=== PATIENT | male | born 1970 | race Caucasian/White ===

== ENCOUNTER 2018-01-21 15:47 | Outpatient (CLI) | payer MEDICARE, OTHER ==
[2016-09-13 19:39] VITALS: BP 169/90
[2018-01-21 16:27] LABS: BASOPHILS % 0.6 (0.0-1.5); EOSINOPHILS % 1.1 % (0.0-6.8); MEAN CORPUSCULAR HEMOGLOBIN 30.2 pg (28.0-34.0); MEAN CORPUSCULAR VOLUME 86.7 fl (80.0-100.0); MONOCYTES % 5.1 % (0.0-11.0)
[2018-01-21 17:02] LABS: eGFR (African) > 60; eGFR (Non-African) > 60
== END 2018-01-21 15:50 ==
LOC: LAB 15:47
PROVIDERS: ATTEND Family Medicine
DX: K62.5 Hemorrhage of anus and rectum (principal); I10 Essential (primary) hypertension; I50.9 Heart failure, unspecified; E78.5 Hyperlipidemia, unspecified; R73.9 Hyperglycemia, unspecified; R30.0 Dysuria
CPT/HCPCS: 36415; 80053; 80061; 83036; 85025; G0103; 84153; 87086

== ENCOUNTER 2018-01-25 06:30 | Emergency (ER) | payer MEDICARE, OTHER ==
--- NOTE | 2018-01-25 06:59 | ED Physician Documentation ---
Chest Pain - HISTORIAN Historian: patient, spouse - HPI Chief Complaint: Chest Pain - VITAL SIGNS Vital Signs: Vital Signs Temp Pulse Resp BP Pulse Ox 169/90 09/13/16 19:36 <Ranjeet Zelaya - Last Filed: 01/25/18 07:00> - HPI Onset: other (Since 10 pm last night although this has happened in the past ) Timing: gradual onset, still present Duration: waxing, waning (since 10 pm ) Last known Well Date: 01/24/18 Last Known Well Time: 22:00 Last known Well Code/Unknown Code: Unknown Context: other (He said he was up with the pain initally started however he was able to sleep ) Severity: mild Quality: pressure, burning, dull Chest Pain Radiation: jaw, arms, neck, shoulders, back Chest Pain Signs/Symptoms: denies: nausea, vomiting, diaphoresis, dizziness, dyspnea Worsened By: nothing Relieved By: nothing Further Comments: yes (He states that he started with pain around 10 pm - epigastric in his indication of where pain started. He states he did fall asleep and then was up to have a bowel movement and notes he did get the pain in his arm and jaw at that time. No nausea . No diaprohesis) - ROS CONST: none MS/LYMPH: none GI/: none EYES/ENT: none SKIN/ENDO: none NEURO/PSYCH: none - PAST HX ID risk factors: diabetes Type 2, hyperlipidemia, cardiac disease, angina, CHF DVT/PE Risk Factors: none TAD/AAA risk factors: none Neuro deficit: TIA (history - no current symptoms ) GI disease: none Lung disease: none Surgeries/Procedures: cardiac cath, appendectomy Immunizations: UTD - SOCIAL HX Smoking History: quit greater than 1 year Alcohol Use: none Drug Use: none - FAMILY HX Family HX: none - VITAL SIGNS Vital Signs: Vital Signs Temp Pulse Resp BP Pulse Ox 117 H 22 176/96 99 01/25/18 06:39 01/25/18 06:39 01/25/18 06:39 01/25/18 06:39 - REVIEWED ASSESSMENTS Nursing Assessment Reviewed: Yes Vitals Reviewed: Yes <Noemi Gomez - Last Filed: 01/25/18 07:31> - PAST HX Allergies/Adverse Reactions: Allergies Allergy/AdvReac Type Severity Reaction Status Date / Time cephalexin [Cephalexin] Allergy Mild Verified 01/25/18 06:46 Sulfa (Sulfonamide Allergy Verified 01/25/18 06:46 Antibiotics) [Sulfa(Sulfonamide Antibiotics)] aspirin AdvReac Severe agitation Verified 01/25/18 06:46 hydromorphone HCl AdvReac Nausea/Vomi Verified 01/25/18 06:46 [From Dilaudid] ting Home Medications: Ambulatory Orders Medication Instructions Recorded Nitroglycerin [Nitrostat] 0.4 mg SL Q5MIN PRN 09/15/15 Tamsulosin HCl [Flomax] 0.4 mg PO [id number] 11/25/15 oxyCODONE HCL/ACETAMINOPHEN 1 tab PO Q6 PRN 11/25/15 [Percocet 5/325] Potassium Chloride [Klor-Con 10] 10 meq PO D #30 tablet.er 12/08/15 Procedures - Central Line Progress: transfer to [place] [id number] <Ranjeet Zelaya R - Last Filed: 01/25/18 07:00> ED Results Lab/Radiology - Orders Orders: ED Orders Category Date Time Status Continuous EKG monitoring Q30M Care 01/25/18 06:46 Active Continuous Pulse Oximetry Q30M Care 01/25/18 06:[address] IV Lock 1T Care 01/25/18 06:46 Active CHEST 2VIEW [RAD] Stat Exams 01/25/18 Ordered CBC/PLATELET/DIFF Routine Lab 01/25/18 06:46 Ordered CMP Routine Lab 01/25/18 06:46 Ordered CREATINE KINASE Routine Lab 01/25/18 06:46 Ordered TROPONIN I (cTnI) Stat Lab 01/25/18 06:46 Ordered Oxygen Daily Oxygen 01/25/18 07:00 Ordered EKG WITH COMPARISON Stat Ther 01/25/18 06:46 Ordered <Ranjeet Zelaya - Last Filed: 01/25/18 07:00> - Lab Results Lab Results: Lab Results 01/25/18 01/25/18 06:57 06:57 WBC 8.30 K/ul K/ul (4.00-12.00) RBC 4.66 M/ul M/ul (3.90-5.20) Hgb 14.6 g/dL g/dL (12.0-18.0) Hct 41.2 % % (37.0-53.0) MCV 88.5 fl fl (80.0-100.0) MCH 31.3 pg pg (28.0-34.0) MCHC 35.4 g/dL g/dL (30.0-36.0) RDW 13.0 % % (11.3-14.3) Plt Count 313 K/mm3 K/mm3 (130-400) Neut % (Auto) 64.3 % % (39.0-79.0) Lymph % (Auto) 26.6 % % (16.0-50.0) [place] % (Auto) 5.5 % % (0.0-11.0) Eos % (Auto) 1.3 % % (0.0-6.8) Baso % (Auto) 0.7 (0.0-1.5) Neut # (Auto) 5.3 # k/uL # k/uL (1.4-7.7) Lymph # (Auto) 2.2 # k/uL # k/uL (0.6-4.0) [place] # (Auto) 0.4 # k/uL # k/uL (0.0-0.9) Eos # (Auto) 0.1 # k/uL # k/uL (0.0-0.6) Baso # (Auto) 0.0 # k/uL # k/uL (0.0-0.5) Reactive Lymphs % 1.7 % % (0.0-5.0) Reactive Lymphs # 0.1 # k/uL # k/uL (0.0-0.8) Sodium 138 mmol/L mmol/L (136-145) Potassium 3.4 mmol/L L mmol/L (3.5-5.1) Chloride 97 mmol/L L mmol/L (98-107) Carbon Dioxide 28 mmol/L mmol/L (22-30) BUN 7 mg/dL L mg/dL (9-20) Creatinine 0.90 mg/dL mg/dL (0.66-1.25) Estimated Creat Clear 209 Est GFR ( Amer) > 60 (60 - ) Est GFR (Non-Af Amer) > 60 (60 - ) Glucose 160 mg/dL H mg/dL (74-106) Calcium 9.5 mg/dL mg/dL (8.4-10.2) Total Bilirubin 0.8 mg/dL mg/dL (0.2-1.3) AST 45 U/L U/L (15-46) ALT 63 U/L U/L (13-69) Alkaline Phosphatase 94 U/L U/L (38-126) Creatine Kinase 101 U/L U/L (55-170) Total Protein 7.8 g/dL g/dL (6.3-8.2) Albumin 4.2 g/dL g/dL (3.5-5.0) - Orders Orders: ED Orders Category Date Time Status Continuous EKG monitoring Q30M Care 01/25/18 06:46 Active Continuous Pulse Oximetry Q30M Care 01/25/18 06:[address] IV Lock 1T Care 01/25/18 06:46 Active CHEST 2VIEW [RAD] Stat Exams 01/25/18 Taken CBC/PLATELET/DIFF Routine Lab 01/25/18 06:57 Completed CMP Routine Lab 01/25/18 06:57 Received CREATINE KINASE Routine Lab 01/25/18 06:57 Received TROPONIN I (cTnI) Stat Lab 01/25/18 06:57 Received Gi Cocktail Med 01/25/18 07:13 Ordered Mag Hydrox/Al Hydrox/Simeth [Mylanta] 30 ml Lidocaine 2%Visc 15ml [Xylocaine] 20 mg PHENobarb/HYOSCY/ATROPINE/SCOP [] 10 ml PO NOW Ketorolac Tromethamine [Toradol] Med 01/25/18 07:12 Once 30 mg IVP NOW ONE Lidocaine 2%Visc 15ml [Xylocaine] Med 01/25/18 07:19 Discontinued 300 mg .ROUTE .STK-MED ONE Magnesium Hydroxide/Al Hydrox [Maalox] Med 01/25/18 07:19 Discontinued 30 ml PO .STK-MED ONE Oxygen Daily Oxygen 01/25/18 07:00 Ordered EKG WITH COMPARISON Stat Ther 01/25/18 06:46 Ordered <Noemi Gomez - Last Filed: 01/25/18 07:31> Chest Pain Physical Exam - EXAM General Appearance: alert, mild distress EENT: eye inspection normal Neck: nml inspection Respiratory: no resp. distress, chest non-tender, nml breath sounds CVS: reg. rate & rhythm, no murmur, no gallop, no friction rub Abdomen: soft, normal bowel sounds, other (pain with palpation epigastric area ) Skin: warm/dry, normal color Extremities: non-tender, normal range of motion, no evidence of injury, no edema Neuro: oriented X3, CN's nml as tested, motor nml, sensation nml, mood/affect nml, cognition normal <Noemi Gomez - Last Filed: 01/25/18 07:31> Discharge <Ranjeet Zelaya - Last Filed: 01/25/18 07:00> Comments: 1. Follow up with [facility] /PCP 2. Pain meds as needed at home 3. [place] foods progress as tolerated 4. Sit up after eating meals for at least 30 min 5. Return to ER for any concerns Decision to Admit: NO Date of Decison to Admit: 01/25/18 Decision Time: 07:31 <Noemi Gomez - Last Filed: 01/25/18 07:31> Clincal Impression: Chest pain Qualifiers: Chest pain type: unspecified Qualified Code(s): R07.9 - Chest pain, unspecified Referrals: Phan Dickerson MD [Primary Care Provider] - 2 Days Condition: Stable Disposition: 01 HOME, SELF-CARE
[2018-01-25 07:10] LABS: BASOPHILS % 0.7 (0.0-1.5); EOSINOPHILS % 1.3 % (0.0-6.8); MEAN CORPUSCULAR HEMOGLOBIN 31.3 pg (28.0-34.0); MEAN CORPUSCULAR VOLUME 88.5 fl (80.0-100.0); MONOCYTES % 5.5 % (0.0-11.0); NEUTROPHILS # 5.3 # k/uL (1.4-7.7)
[2018-01-25] MEDS ORDERED: KETOROLAC TROMETHAMINE 30 MG/1ML VIAL IVP ONE (07:12)
[2018-01-25] MEDS ORDERED: MAG HYDROX/AL HYDROX/SIMETH 30 ML, Lidocaine 2%Visc 15ml 20 MG, PHENobarb/HYOSCY/ATROPI... PO ONE ×3 (07:13)
--- NOTE | 2018-01-25 07:16 | Diagnostic Imaging Report ---
[facility] [address] [facility] 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 COMPARISON: None available. TECHNIQUE: 2 views of the chest were performed. FINDINGS: No pneumothorax, consolidative infiltrates, pleural effusions, or pulmonary edema. The heart is borderline enlarged. Abundant overlying soft tissue obscures evaluation of fine detail. IMPRESSION: No acute cardiopulmonary process. Electronically signed on Jan 25, 2018 7:14:19 AM BIOSTATISTICS TEACHER by: Jamil ANDERSEN
[2018-01-25 07:19] LABS: eGFR (African) > 60; eGFR (Non-African) > 60
[2018-01-25] MEDS ORDERED: Lidocaine 2%Visc 15ml 20 MG/ML UDC ONE (07:19)
[2018-01-25] MEDS ORDERED: MAGNESIUM HYDROXIDE/AL HYDROX 30 ML UDC PO ONE (07:19)
[2018-01-25 07:44] VITALS: BP 151/98
== END 2018-01-25 07:30 | disposition home or self-care (01) ==
LOC: ED 06:30
DX: R07.9 Chest pain, unspecified (principal); I50.9 Heart failure, unspecified; E11.9 Type 2 diabetes mellitus without complications; I10 Essential (primary) hypertension
CPT/HCPCS: 71046; 80053; 82550; 84484; 85025; 93005; J1885; 96374; 99283; S1016

== ENCOUNTER 2018-02-03 21:28 | Emergency (ER) | payer MEDICARE, OTHER ==
[2018-02-03] MEDS: 0.9 % SODIUM CHLORIDE 1,000 ML IV SCH (22:15)
--- NOTE | 2018-02-03 22:15 | ED Physician Documentation ---
Abdominal Pain - HISTORIAN Historian: patient, spouse - HPI Stated Complaint: UNABLE TO VOID Chief Complaint: Abdominal Pain Additonal Information: rt and lt flank pain rad to rt groin and dtesticles emesis water this pm freq scanty ua w/discomfort feeling inadequate empty of ub-pt refuses catheter has hx gu lith Onset: days ago (1) Duration: waxing, waning Timing: worse Context: denies: out of country travel, bad food, recent trauma Severity: moderate Quality: pain, cramping, other (pt paces floor) Associated Symptoms: nausea, vomiting Relieved by: nothing Further Comments: yes (pt [facility] recently deep TIA) - ROS CONST: recent illness GI/: dark urine, problems urinating CVS/RESP: none EYES/ENT: none MS/SKIN/LYMPH: none NEURO/PSYCH: none - SOCIAL HX Smoking History: non-smoker Alcohol Use: none Drug Use: none - FAMILY HX Family History: no significant history - PAST HX Past History: kidney stones, other (TIA CHF POSS HI) Ischemic Bowel Risk Factors: none Other History: none Home Medications: Ambulatory Orders Medication Instructions Recorded Nitroglycerin [Nitrostat] 0.4 mg SL Q5MIN PRN 09/15/15 Tamsulosin HCl [Flomax] 0.4 mg PO [id number] 11/25/15 oxyCODONE HCL/ACETAMINOPHEN 1 tab PO Q6 PRN 11/25/15 [Percocet 5/325] Potassium Chloride [Klor-Con 10] 10 meq PO D #30 tablet.er 12/08/15 Allergies/Adverse Reactions: Allergies Allergy/AdvReac Type Severity Reaction Status Date / Time cephalexin [Cephalexin] Allergy Mild Verified 02/03/18 22:25 Sulfa (Sulfonamide Allergy Verified 02/03/18 22:25 Antibiotics) [Sulfa(Sulfonamide Antibiotics)] aspirin AdvReac Severe agitation Verified 02/03/18 22:25 hydromorphone HCl AdvReac Nausea/Vomi Verified 02/03/18 22:25 [From Dilaudid] ting - VITAL SIGNS Vital Signs: Vital Signs Temp Pulse Resp BP Pulse Ox 97.6 F 106 H 20 144/101 97 02/03/18 21:28 02/03/18 21:28 02/03/18 21:28 02/03/18 21:28 02/03/18 21:28 - REVIEWED ASSESSMENTS Nursing Assessment Reviewed: Yes Vitals Reviewed: Yes ED Results Lab/Radiology - Lab Results Lab Results: Lab Results 02/03/18 02/03/18 02/03/18 22:16 22:16 22:16 WBC 8.70 K/ul K/ul (4.00-12.00) RBC 4.87 M/ul M/ul (3.90-5.20) Hgb 14.8 g/dL g/dL (12.0-18.0) Hct 42.3 % % (37.0-53.0) MCV 86.9 fl fl (80.0-100.0) MCH 30.3 pg pg (28.0-34.0) MCHC 34.9 g/dL g/dL (30.0-36.0) RDW 13.0 % % (11.3-14.3) Plt Count 343 K/mm3 K/mm3 (130-400) Neut % (Auto) 61.1 % % (39.0-79.0) Lymph % (Auto) 28.7 % % (16.0-50.0) [place] % (Auto) 6.1 % % (0.0-11.0) Eos % (Auto) 2.1 % % (0.0-6.8) Baso % (Auto) 0.7 (0.0-1.5) Neut # (Auto) 5.3 # k/uL # k/uL (1.4-7.7) Lymph # (Auto) 2.5 # k/uL # k/uL (0.6-4.0) [place] # (Auto) 0.5 # k/uL # k/uL (0.0-0.9) Eos # (Auto) 0.2 # k/uL # k/uL (0.0-0.6) Baso # (Auto) 0.1 # k/uL # k/uL (0.0-0.5) Reactive Lymphs % 1.4 % % (0.0-5.0) Reactive Lymphs # 0.1 # k/uL # k/uL (0.0-0.8) Sodium 139 mmol/L mmol/L (136-145) Potassium 3.6 mmol/L mmol/L (3.5-5.1) Chloride 100 mmol/L mmol/L (98-107) Carbon Dioxide 24 mmol/L mmol/L (22-30) BUN 10 mg/dL mg/dL (9-20) Creatinine 0.90 mg/dL mg/dL (0.66-1.25) Estimated Creat Clear 203 Est GFR ( Amer) > 60 (60 - ) Est GFR (Non-Af Amer) > 60 (60 - ) Glucose 171 mg/dL H mg/dL (74-106) Calcium 9.0 mg/dL mg/dL (8.4-10.2) Total Bilirubin 0.9 mg/dL mg/dL (0.2-1.3) AST 48 U/L H U/L (15-46) ALT 71 U/L H U/L (13-69) Alkaline Phosphatase 108 U/L U/L (38-126) Total Protein 8.0 g/dL g/dL (6.3-8.2) Albumin 4.3 g/dL g/dL (3.5-5.0) Lipase 181 U/L U/L (23-300) - Radiology Radiology Impressions: rt and lt kidney stoness-2mm stone in rt ureter at L-4 causing hydroureter. meds we have given providing inaDEQUATE RELIEF THOUGH BETTER. He states demerol will produce relief but we do not stock that med here. he has received it w/relief at [facility] He is sent home w/ three norco and has standing rx for oxycodone AND WILL F/U W/THAT. if no relief will perhaps go [facility] for furthur evbaluation. It is explained in detail that his severe dehydration and extensive use soda and admitted inadequate water intake apparently exaBERATE his chances of repeated kidney stones. he says he will dec use soda and increase use of water and will f/u w/ his urologists' - Orders Orders: ED Orders Category Date Time Status Place IV Lock 1T Care 02/03/18 22:[address] ABD & PELVIS W/O CON Stat Exams 02/03/18 Taken CBC/PLATELET/DIFF Routine Lab 02/03/18 22:16 Completed CMP Routine Lab 02/03/18 22:16 Completed LIPASE Stat Lab 02/03/18 22:16 Completed URINALYSIS Routine Lab 02/03/18 Ordered 0.9 % Sodium Chloride [Normal Saline] 1,000 ml Med 02/03/18 22:30 Ordered IV Q1 HYDROcodone /APAP 5/325 [Exira 5/325] Med 02/04/18 00:37 Discontinued 3 each PO NOW ONE Ketorolac Tromethamine [Toradol] Med 02/03/18 22:55 Discontinued 30 mg .ROUTE .STK-MED ONE Ketorolac Tromethamine [Toradol] Med 02/03/18 22:56 Discontinued 30 mg IVP NOW ONE Morphine Sulfate [DepoDur] Med 02/03/18 23:56 Discontinued 2 mg IVP NOW ONE Ondansetron HCl/Pf [Zofran 4 mg/2 ml] Med 02/03/18 22:04 Discontinued 4 mg IVP NOW ONE Ondansetron HCl/Pf [Zofran 4 mg/2 ml] Med 02/04/18 00:00 Discontinued 4 mg IVP NOW ONE Tamsulosin HCl [Flomax] Med 02/03/18 23:25 Discontinued 0.4 mg PO NOW ONE fentaNYL CITRATE/PF [Duragesic] Med 02/03/18 23:24 Discontinued 100 mcg IVP NOW ONE fentaNYL CITRATE/PF [Duragesic] Med 02/03/18 22:07 Discontinued 50 mcg IVP NOW ONE Abdominal Pain Physical Exam - Physical Exam General Appearance: moderate distress (paces floor) EENT: eye inspection normal NECK: normal inspection RESPIRATORY: no resp distress, breath sounds normal CVS: reg rate & rhythm ABDOMEN: soft, distended (-marked). No: non-tender, tenderness (generalized) SKIN: warm/dry, normal color. No: cyanosis, diaphoresis, mottled EXTREMITIES: non-tender, normal range of motion, no evidence of injury NEURO: oriented X3, mood/affect nml Vital Signs: Vital Signs Temp Pulse Resp BP Pulse Ox 97.6 F 106 H 20 144/101 97 02/03/18 21:28 02/03/18 21:28 02/03/18 21:28 02/03/18 21:28 02/03/18 21:28 Discharge Clincal Impression: gu llithiasis w/ rt hydroureter , 2mm stone rt ureter, advanced dehydration, excess soda lpop-up to 36 0z/d Referrals: Phan Dickerson MD [Primary Care Provider] - 2 Days Comments: home f/u w/pcp urologists. (see note w/radiology report) Condition: Fair Disposition: 01 HOME, SELF-CARE Decision to Admit: NO Decision Time: 00:52
[2018-02-03] MEDS ORDERED: 0.9 % SODIUM CHLORIDE 1,000 ML IV ONE (22:17)
[2018-02-03 22:20] LABS: BASOPHILS % 0.7 (0.0-1.5); EOSINOPHILS % 2.1 % (0.0-6.8); MEAN CORPUSCULAR HEMOGLOBIN 30.3 pg (28.0-34.0); MEAN CORPUSCULAR VOLUME 86.9 fl (80.0-100.0); MONOCYTES % 6.1 % (0.0-11.0); NEUTROPHILS # 5.3 # k/uL (1.4-7.7)
[2018-02-03] MEDS: ONDANSETRON HCL/PF 4 MG/ 2ML VIAL IVP ONE (22:23)
[2018-02-03] MEDS: fentaNYL CITRATE/PF 100 MCG/ 2ML AMP IVP ONE ×2 (22:23→23:34)
[2018-02-03 22:39] LABS: eGFR (African) > 60; eGFR (Non-African) > 60
[2018-02-03] MEDS: KETOROLAC TROMETHAMINE 30 MG/1ML VIAL ONE (22:58)
[2018-02-03] MEDS: KETOROLAC TROMETHAMINE 30 MG/1ML VIAL IVP ONE (22:58)
[2018-02-03] MEDS: TAMSULOSIN HCL 0.4 MG CAP.ER.24H PO ONE (23:45)
[2018-02-04] MEDS: MORPHINE SULFATE 2 MG/ML PREFILLED SYR IVP ONE (00:07)
[2018-02-04] MEDS: ONDANSETRON HCL/PF 4 MG/ 2ML VIAL IVP ONE (00:07)
[2018-02-04] MEDS: HYDROcodone /APAP 5/325 1 EACH TABLET PO ONE (00:45)
--- NOTE | 2018-02-04 06:45 | Diagnostic Imaging Report ---
KAY MURRAY [facility] [address] [facility] [address] [place] [address]. [id number] Report Submission Date: Feb 03, 2018 10:55:47 PM CDT Patient Study Name: PHYLLIS CAIN Date: Feb 03, 2018 10:29:13 PM CDT MRN: [id number] Modality Type: CT\SR Gender: M Description: CT ABD/PEL S : 72 Institution: [facility] Physician: KAY MURRAY CT of the abdomen and pelvis without contrast Clinical history: RIGHT SIDED ABD FLANK PAIN, HX OF KIDNEY STONES Technique: CT of the abdomen and pelvis was performed without oral or intravenous administration of contrast. Sagittal and coronal reconstructions are performed by the technologist. Findings: Visualized lung bases are clear. Bilateral gynecomastia is evident. The liver is diffusely hypodense consistent with hepatic steatosis. No focal abnormality in the liver or spleen. Gallbladder is normally distended. There is no pancreatic or adrenal abnormality. The kidneys are of normal size, shape and position. There bilateral intrarenal calculi. There is a 2 mm stone in the right ureter at the L4 level with right obstructive uropathy. Bladder is unremarkable. No free fluid in the pelvis or abdomen. Appendix is surgically absent. Right inguinal hernia is present containing only fat. Bilateral spondylolysis is demonstrated at L5 with grade I anterolisthesis of L5 on S1. Impression: 1. 2 mm stone in the right ureter with right obstructive uropathy. 2. Bilateral intrarenal calculi. 3. Hepatic steatosis. 4. Bilateral spondylolysis at L5. Electronically signed on Feb 03, 2018 10:55:47 PM CDT by: Yrn ANDERSEN
[2018-02-04 07:01] LABS: APPEARANCE,URINE CLEAR (CLEAR); COLOR,URINE YELLOW (YELLOW)
[2018-02-04 07:02] LABS: OCCULT BLOOD,URINE 3+ (NEGATIVE); PH URINE 5.5 (5.0 - 8.0); UROBILINOGEN URINE 0.2 Eu (0.2-1.0)
[2018-02-11 19:26] VITALS: BP 138/70
== END 2018-02-04 00:50 | disposition home or self-care (01) ==
LOC: ED 21:28
DX: E86.0 Dehydration (principal); N13.2 Hydronephrosis with renal and ureteral calculous obstruction
CPT/HCPCS: 74176; 80053; 81002; 83690; 85025; 96360; 96375; 96376; 99283; J1885; J2405; J3010; J7030; 96374; S1016

== ENCOUNTER 2018-07-20 18:04 | Emergency (ER) | payer MEDICARE, OTHER ==
--- NOTE | 2018-07-20 18:22 | ED Physician Documentation ---
General Adult - HISTORIAN Historian: patient - HPI Stated Complaint: R hand pain Chief Complaint: General Adult Onset: other (months) Timing: still present Severity: moderate Further Comments: yes (Pt is a 47 yo male with pain in his R hand. Pain c/o several cysts on wrist, and palm. Pt describes trigger finger in his R middle finger. Finger gets stuck in flexion. Pt has pain that radiates up his R arm, he says.) - ROS CONST: no problems EYES/ENT: none CVS/RESP: none GI/: none MS/SKIN/LYMPH: other (R hand pain) - PAST HX Past History: other (CAD, CHF, [place], CVA, DM, GERD, HLD, HTN) Surgeries/Procedures: other (appendectomy; heart cath x 3.) Allergies/Adverse Reactions: Allergies Allergy/AdvReac Type Severity Reaction Status Date / Time cephalexin [Cephalexin] Allergy Mild Verified 07/20/18 18:47 Sulfa (Sulfonamide Allergy Verified 07/20/18 18:47 Antibiotics) [Sulfa(Sulfonamide Antibiotics)] aspirin AdvReac Severe agitation Verified 07/20/18 18:47 hydromorphone HCl AdvReac Nausea/Vomi Verified 07/20/18 18:47 [From Dilaudid] ting Home Medications: Ambulatory Orders Medication Instructions Recorded Nitroglycerin [Nitrostat] 0.4 mg SL Q5MIN PRN 09/15/15 Tamsulosin HCl [Flomax] 0.4 mg PO [id number] 11/25/15 oxyCODONE HCL/ACETAMINOPHEN 1 tab PO Q6 PRN 11/25/15 [Percocet 5/325] Potassium Chloride [Klor-Con 10] 10 meq PO D #30 tablet.er 12/08/15 - SOCIAL HX Smoking History: quit greater than 1 year - FAMILY HX Family History: No (unk) - VITAL SIGNS Vital Signs: Vital Signs Temp Pulse Resp BP Pulse Ox 138/70 02/04/18 00:48 - REVIEWED ASSESSMENTS Nursing Assessment Reviewed: Yes Vitals Reviewed: Yes Progress - Progress Progress: Splint R wrist and R ring finger [place] (5/325) 2 tabs in ER. D/c instructions: Follow up with Orthopedic Clinic at either [facility] Tel. [phone] (ask for Orthopedic Clinic) or at [facility] Tel. [phone]. Splint finger and wrist. Rx [place] (). Take one or two every 6 hrs as needed for moderate to severe pain. Disp #15 General Adult Physical Exam - PHYSICAL EXAM GENERAL APPEARANCE: mild distress NECK: normal inspection, supple RESPIRATORY: no resp distress, chest non-tender, breath sounds normal CVS: reg rate & rhythm, heart sounds normal BACK: normal inspection SKIN: warm/dry, normal color EXTREMITIES: other (R hand, mult cyst, wrist and palm with c/o R middle trigger finger.) NEURO: oriented X3, motor nml, sensation nml Discharge Clincal Impression: Mult R hand cysts, trigger finger, R ring finger Referrals: Phan Dickerson MD [Primary Care Provider] - Condition: Stable Disposition: 01 HOME, SELF-CARE Decision to Admit: NO Decision Time: 19:00
[2018-07-20] MEDS ORDERED: HYDROcodone /APAP 5/325 1 EACH TABLET PO ONE (18:47)
[2018-07-20 19:16] VITALS: BP 176/96
== END 2018-07-20 19:09 | disposition home or self-care (01) ==
LOC: ED 18:04
DX: M67.441 Ganglion, right hand (principal); M65.341 Trigger finger, right ring finger
CPT/HCPCS: 99282; A9270-GY

== ENCOUNTER 2018-08-12 10:25 | Outpatient (CLI) | payer MEDICARE, OTHER ==
[2018-08-12 11:51] LABS: eGFR (Non-African) > 60
== END 2018-08-12 10:26 ==
LOC: LAB 10:25
PROVIDERS: ATTEND Family Medicine
DX: E11.9 Type 2 diabetes mellitus without complications (principal); I42.9 Cardiomyopathy, unspecified
CPT/HCPCS: 80053; 80061; 82043; 83036

== ENCOUNTER 2018-09-07 14:33 | Emergency (ER) | payer MEDICARE, OTHER ==
--- NOTE | 2018-09-07 14:47 | ED Physician Documentation ---
Chest Pain - HISTORIAN Historian: patient - HPI Stated Complaint: chest pain Chief Complaint: Chest Pain Onset: days ago (3) Timing: other (on and off ) Duration: waxing, waning Last known Well Date: 09/04/18 Last Known Well Time: 10:00 Last known Well Code/Unknown Code: Unknown Context: other (he is not sure the correlation of timing ) Severity: mild Quality: pressure, tightness, burning, aching, sharp, stabbing Chest Pain Radiation: other (not radiation although at times sharp pain in left neck and back not always at the same time ) Chest Pain Signs/Symptoms: diaphoresis. 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 He does report having left sided arm numbness (he is able to use the walker with his left arm and he is holding himself up on the bed with his left arm) He reports the arm is "totally numb until that pain comes through my arm and it happens real fast I can feel it" He reports he was given hydrocodone for the stroke last week and he tried this last night for the pain although "it didnt touch it" He reports the pain is sharp at times, stabbing at times, aching at times, dull at times and pressure at times. The pain comes and goes but is always there per his report. He denies any nasuea although he has had some times where he feels as though he is sweating. Shortness of breath although he states he has oxygen at home he uses at times) - ROS CONST: other (stroke last week ) GI/: denies: problems urinating, vomiting, nausea, diarrhea EYES/ENT: denies: problems with vision NEURO/PSYCH: denies: headache - PAST HX [place] risk factors: diabetes Type 2, cardiac disease, CHF DVT/PE Risk Factors: paralysis (on left although he has been able to use the left side in ADL's ) Neuro deficit: none GI disease: GERD Lung disease: other (Sleep apnea ) Immunizations: UTD Allergies/Adverse Reactions: Allergies Allergy/AdvReac Type Severity Reaction Status Date / Time cephalexin [Cephalexin] Allergy Mild Verified 09/07/18 15:03 Sulfa (Sulfonamide Allergy Verified 09/07/18 15:03 Antibiotics) [Sulfa(Sulfonamide Antibiotics)] aspirin AdvReac Severe agitation Verified 09/07/18 15:03 hydromorphone HCl AdvReac Nausea/Vomi Verified 09/07/18 15:03 [From Dilaudid] ting Home Medications: Ambulatory Orders Medication Instructions Recorded Nitroglycerin [Nitrostat] 0.4 mg SL Q5MIN PRN 09/15/15 oxyCODONE HCL/ACETAMINOPHEN 1 tab PO Q6 PRN 11/25/15 [Percocet 5/325] Potassium Chloride [Klor-Con 10] 10 meq PO D #30 tablet.er 12/08/15 Albuterol Sulfate [Proair 90 mcg IH PRN 09/07/18 Respiclick] Carvedilol [Coreg] 25 mg PO BID 09/07/18 Clopidogrel Bisulfate [Plavix] 75 mg PO QD 09/07/18 Cyanocobalamin [Vitamin B-12] 1,000 mcg PO DAILY 09/07/18 Furosemide [Lasix] 40 mg PO DAILY 09/07/18 Losartan Potassium [Cozaar] 100 mg PO DAILY 09/07/18 Mupirocin 1 gm TP 09/07/18 Ondansetron HCl Rapdis [Zofran ODT] 4 mg PO PRN 09/07/18 Prochlorperazine Maleate 10 mg PO PRN 09/07/18 [Compazine] Spironolactone [Aldactone] 25 mg PO BID 09/07/18 Valproic Acid 250 mg PO DAILY 09/07/18 amLODIPine BESYLATE [Norvasc] 5 mg PO 0900 09/07/18 - SOCIAL HX Smoking History: non-smoker Alcohol Use: none Drug Use: none - FAMILY HX Family HX: none - VITAL SIGNS Vital Signs: Vital Signs Temp Pulse Resp BP Pulse Ox 176/96 07/20/18 19:09 - REVIEWED ASSESSMENTS Nursing Assessment Reviewed: Yes Vitals Reviewed: Yes Progress - Progress Progress: 1530: he is stating pain is increasing. LUQ over into chest DG 1600: Pain is "a little better" he is laying in bed with spouse at bedside DG 1730: Awaiting lab results - other findings discussed - he is not wanting to stay in the hospital DG 1805: States the pain is middle to left abdomen and up in left shoulder - pain is 7/10 DG 1830: Still awaiting lab. Pain is now a 3/10 DG 1955: results discussed and meds to take prior to home. He is wanting to go home DG ED Results Lab/Radiology - Radiology Radiology Impressions: 2 views of the chest History: PT STATES CHEST PAINS SINCE THIS AM. PT STATES HE HAD A STROKE X 1 WEEK AGO. PT STATES KNOT IN UPPER LEFT QUAD OF ABDOMEN. Comparison: January 25, 2018 Bibasilar opacities are again noted. Mild central pulmonary vascular prominence. Heart size is within normal limits No acute osseous pathology Impression: 1. Bibasilar atelectasis/ patchy infiltrates. No pleural effusion. Electronically signed on Sep 07, 2018 3:44:18 PM CDT by: Brianne Redd Examination: CT Abdomen/pelvis History: LUQ ABD PAIN WITH KNOT HX OF STROKE X 1 1/2 WEEKS AGO PER PATIENT (Hx) Comparison exams: None available Technique: CT Abdomen/pelvis without IV protocol. Findings: Liver demonstrates mild diffuse low attenuation. Spleen, adrenals, pancreas, kidneys and gallbladder are without gross irregularity given exam technique. No gallstone. Bilateral cortical renal calcifications. Ureters are nondilated in their course through the abdomen and pelvis. No central calcifications. Bladder margin within normal limits. Abdominal aorta without aneurysm or peripheral atherosclerotic disease. Cardiac silhouette is not enlarged. No pericardial effusion. Bowel unopacified limiting evaluation. No abnormal dilation. Stool within the large bowel limiting sensitivity. No mesenteric inflammatory changes or free fluid. Right inguinal hernia. Osseous structures demonstrate degenerative changes and L5/S1 listhesis. Lung bases demonstrate atelectasis without infiltrate. No effusion. Impression: No acute upper abdominal organ inflammatory process. No abnormal bowel dilation or inflammation. Right inguinal hernia. No bowel involvement. No gallstone. Bilateral nephrolithiasis. No abnormal ureteric dilation. No lung base consolidation or effusion. Electronically signed on Sep 07, 2018 5:46:44 PM CDT by: Caismiro Jauregui Chest Pain Physical Exam - EXAM General Appearance: no acute distress, alert EENT: eye inspection normal, ENT inspection normal, no signs of dehydration Neck: nml inspection Respiratory: no resp. distress, chest non-tender, nml breath sounds CVS: reg. rate & rhythm, no murmur Abdomen: soft, normal bowel sounds, no distension, non-tender Skin: warm/dry, other (scabs over upper arms he says he was told recently he has anxiety picking ) Extremities: non-tender, normal range of motion, no evidence of injury, no edema Neuro: oriented X3, motor nml, mood/affect nml, cognition normal Discharge Clincal Impression: Kidney stones Pneumonia Qualifiers: Pneumonia type: due to unspecified organism Laterality: bilateral Lung location: lower lobe of lung Qualified Code(s): J18.1 - Lobar pneumonia, unspecified organism Referrals: Phan Dickerson MD [Primary Care Provider] - 2 Days Comments: 1. Levaquin 750 mg Take 1 by mouth daily x 10 days 2. Flomax 0.4 mg take 1 by mouth daily x 10 days 3. Toradol 10 mg take 1 by mouth every 6 hours as needed for pain 4. Mag Citrate 1/2 bottle if no bowel movement take 1/2 bottle again 5. Increase fluids 6. ProAir 90 mcg take 2 puffs by mouth every 4 hours as needed for cough 7. See PCP in 2 days 8. Return to ER for concerns Condition: Stable Disposition: 01 HOME, SELF-CARE Decision to Admit: NO Date of Decison to Admit: 09/07/18 Decision Time: 20:00
[2018-09-07 15:08] LABS: BASOPHILS % 0.4 (0.0-1.5); EOSINOPHILS % 1.4 % (0.0-6.8); MEAN CORPUSCULAR HEMOGLOBIN 29.8 pg (28.0-34.0); MONOCYTES % 9.9 % (0.0-11.0)
[2018-09-07] MEDS: ASPIRIN 81 MG CHEW TAB PO ONE (15:35)
[2018-09-07] MEDS: KETOROLAC TROMETHAMINE 30 MG/1ML VIAL IVP ONE (15:35)
[2018-09-07 15:45] LABS: eGFR (Non-African) > 60
[2018-09-07] MEDS: ORPHENADRINE CITRATE 60 MG/2ML IV ONE (16:17)
[2018-09-07] MEDS: IPRATROPIUM/ALBUTEROL SULFATE 3 ML AMPUL.NEB NEB ONE (17:40)
[2018-09-07] MEDS: MORPHINE SULFATE 2 MG/ML PREFILLED SYR IVP ONE (18:09)
--- NOTE | 2018-09-07 19:24 | Diagnostic Imaging Report ---
EVGENY FLOWER [facility] [address] [facility], [facility] [place], [place]. [address] Report Submission Date: Sep 07, 2018 5:46:44 PM CDT Patient Study Name: PHYLLIS CAIN Date: Sep 07, 2018 4:58:21 PM CDT Modality Type: CT\SR Gender: M Description: CT ABD PELVIS W/ CON : 72 Institution: [facility] Physician: EVGENY FLOWER Examination: CT Abdomen/pelvis History: LUQ ABD PAIN WITH KNOT HX OF STROKE X 1 1/2 WEEKS AGO PER PATIENT (Hx) Comparison exams: None available Technique: CT Abdomen/pelvis without IV protocol. Findings: Liver demonstrates mild diffuse low attenuation. Spleen, adrenals, pancreas, kidneys and gallbladder are without gross irregularity given exam technique. No gallstone. Bilateral cortical renal calcifications. Ureters are nondilated in their course through the abdomen and pelvis. No central calcifications. Bladder margin within normal limits. Abdominal aorta without aneurysm or peripheral atherosclerotic disease. Cardiac silhouette is not enlarged. No pericardial effusion. Bowel unopacified limiting evaluation. No abnormal dilation. Stool within the large bowel limiting sensitivity. No mesenteric inflammatory changes or free fluid. Right inguinal hernia. Osseous structures demonstrate degenerative changes and L5/S1 listhesis. Lung bases demonstrate atelectasis without infiltrate. No effusion. Impression: No acute upper abdominal organ inflammatory process. No abnormal bowel dilation or inflammation. Right inguinal hernia. No bowel involvement. No gallstone. Bilateral nephrolithiasis. No abnormal ureteric dilation. No lung base consolidation or effusion. Electronically signed on Sep 07, 2018 5:46:44 PM CDT by: Casimiro ANDERSEN
--- NOTE | 2018-09-07 19:25 | Diagnostic Imaging Report ---
EVGENY FLOWER [facility] [address] [facility] [address] [address] Report Submission Date: Sep 07, 2018 3:44:18 PM CDT Patient Study Name: PHYLLIS CAIN Date: Sep 07, 2018 3:13:01 PM CDT Modality Type: DX Gender: M Description: CHEST : 72 Institution: [facility] Physician: EVGENY FLOWER 2 views of the chest History: PT STATES CHEST PAINS SINCE THIS AM. PT STATES HE HAD A STROKE X 1 WEEK AGO. PT STATES KNOT IN UPPER LEFT QUAD OF ABDOMEN. Comparison: January 25, 2018 Bibasilar opacities are again noted. Mild central pulmonary vascular prominence. Heart size is within normal limits No acute osseous pathology Impression: 1. Bibasilar atelectasis/ patchy infiltrates. No pleural effusion. Electronically signed on Sep 07, 2018 3:44:18 PM CDT by: Brianne ANDERSEN
[2018-09-07 19:41] LABS: TROPONIN T <0.010 ng/mL (<0.010)
[2018-09-07] MEDS: LEVOFLOXACIN 500 MG TABLET PO ONE (19:58)
[2018-09-07] MEDS: TAMSULOSIN HCL 0.4 MG CAP.ER.24H PO ONE (19:58)
[2018-09-07] MEDS: oxyCODONE/ACETAMINOPHEN 5/325 TABLET PO ONE (20:03)
[2018-09-07 20:19] VITALS: BP 134/85
[2018-09-07 20:51] LABS: TROPONIN T <0.010 ng/mL (<0.010)
== END 2018-09-07 20:05 | disposition home or self-care (01) ==
LOC: ED 14:33
DX: N20.0 Calculus of kidney (principal); J18.1 Lobar pneumonia, unspecified organism; Z86.79 Personal history of other diseases of the circulatory system
CPT/HCPCS: 71046; 74177; 80053; 82550; 83880; 84484; 85025; 85379; 93005; 94640; 94760; A9270; J1885; J2270; J2360; 96374; 96375; 99284; S1016

== ENCOUNTER 2019-01-20 12:35 | Emergency (ER) | payer MEDICARE, OTHER ==
--- NOTE | 2019-01-20 12:41 | ED Physician Documentation ---
Chest Pain - HISTORIAN Historian: patient - HPI Stated Complaint: chest pain, dental pain, urinary retention, decreased urine flow Chief Complaint: General Adult Onset: other (for a week he has noted decreased urinary output and forces himself to void. Today he was sick of it. He has a dental issue - states he just finished antibiotics and he has still noted pain. No fever. He states his upper abdomen /lower chest has pain - he feels from his fluid getting high again. He notes he started to have issues with urinary outpt and has history of kidney stones so he was taking flomax he had at home. Denies any injury . Denies any s hortness of air or nasuea. He has no blood in his urine. ) Timing: still present Duration: constant Last known Well Date: 01/11/19 Last Known Well Time: 09:00 Last known Well Code/Unknown Code: Unknown Context: other (all the time . Increased concern with voiding ) Severity: moderate Quality: none Chest Pain Radiation: no radiation Chest Pain Signs/Symptoms: denies: nausea, vomiting, diaphoresis, cool extremities, dizziness, dyspnea, tachypnea Worsened By: nothing Relieved By: nothing - ROS CONST: none MS/LYMPH: none GI/: none NEURO/PSYCH: none - PAST HX [place] risk factors: diabetes Type 2, cardiac disease, CHF DVT/PE Risk Factors: none TAD/AAA risk factors: none Neuro deficit: none GI disease: none Lung disease: none Allergies/Adverse Reactions: Allergies Allergy/AdvReac Type Severity Reaction Status Date / Time cephalexin [Cephalexin] Allergy Mild Verified 01/20/19 13:26 Sulfa (Sulfonamide Allergy Verified 01/20/19 13:26 Antibiotics) [Sulfa(Sulfonamide Antibiotics)] aspirin AdvReac Severe agitation Verified 01/20/19 13:26 hydromorphone HCl AdvReac Nausea/Vomi Verified 01/20/19 13:26 [From Dilaudid] ting Home Medications: Ambulatory Orders Medication Instructions Recorded Nitroglycerin [Nitrostat] 0.4 mg SL Q5MIN PRN 09/15/15 oxyCODONE HCL/ACETAMINOPHEN 1 tab PO Q6 PRN 11/25/15 [Percocet 5/325] Potassium Chloride [Klor-Con 10] 10 meq PO D #30 tablet.er 12/08/15 Prochlorperazine Maleate 10 mg PO HS PRN 09/07/18 [Compazine] - SOCIAL HX Smoking History: non-smoker Alcohol Use: none Drug Use: none - FAMILY HX Family HX: none - VITAL SIGNS Vital Signs: Vital Signs Temp Pulse Resp BP Pulse Ox 134/85 09/07/18 20:05 - REVIEWED ASSESSMENTS Nursing Assessment Reviewed: Yes Vitals Reviewed: Yes Progress - Progress Progress: 1430: states pain is not improving. DG 1510: asking for a different pain med - states pain is increasing DG 1530: he is not able to urinate and asking for cath due to distention on CT scan will I&O cath for results. Kidney stones are not obstructive DG 1539: Refusing cath now states he has had those in the past and he does not want a cath after thought. He states he would like a few min to have the chance to urinate on his own. He understands that he cannot be discharged if he cannot urinate DG 1620: small amount of urine output. DG 1640: requesting more pain med. Continues to refuse I&O cath. DG 1732: continues to refuse I&O cath. He states he needs different pain med due to insurance cost. Discussed pharmacy will call if the med is not covered. Again explained the effects of inability to urinate. He does not wish further care DG ED Results Lab/Radiology - Radiology Radiology Impressions: Examination: Portable chest History: Evaluate lungs. CHEST PAIN. PT STATES HX OF STROKE AND CHF Comparison exam: 07 September 2018 Findings: Single view of the chest demonstrates a normal cardiac and mediastinal silhouette. Lung biswas without focal infiltrate. No blunting of the costophrenic margins. Osseous structures are appropriate for age. Impression: No acute pulmonary process. Electronically signed on Jan 20, 2019 1:48:39 PM RN CLINICAL APPEALS by: Casimiro Jauregui The aorta is normal in course and caliber. The visible lung bases are clear. The heart size is normal without pericardial effusion. The liver enhances homogeneously. The gallbladder is normal without evidence of wall thickening, pericholecystic fluid, or gallstones. The intrahepatic and extrahepatic bile ducts are nondilated. The spleen enhances homogeneously without focal lesion. The pancreas and adrenal glands are normal. The kidneys enhance symmetrically. There is no hydronephrosis. There are bilateral nonobstructive renal calculi, largest on the right measuring 7 mm. Stone burden on the left has slightly increased. The distal esophagus and stomach appear normal. The small bowel and colon are normal in caliber without evidence of wall thickening or obstruction. The appendix is surgically absent. No free air or free fluid is identified within the abdomen. There is no abdominal lymphadenopathy. There is a small fat containing paraumbilical hernia. There is also a small upper abdominal ventral midline fat containing hernia. There is a fat containing right inguinal hernia. The urinary bladder is distended with fluid and appears normal. The prostate appears normal. Knee in the No free fluid is seen within the pelvis. Bone windows demonstrate no suspicious lytic or blastic lesions. The visible osseous structures are intact. There are chronic bilateral L5 pars defects with associated l-5-S1 anterolisthesis. IMPRESSION: 1. No acute process identified in the abdomen or pelvis. 2. Bilateral nonobstructive nephrolithiasis. Stone burden on the left has slightly increased since 09/07/2018. Electronically signed on Jan 20, 2019 3:25:44 PM RN CLINICAL APPEALS by: Jim Olson Chest Pain Physical Exam - EXAM General Appearance: no acute distress, alert EENT: eye inspection normal, pharynx normal, no signs of dehydration Neck: nml inspection Respiratory: no resp. distress, chest non-tender, nml breath sounds CVS: reg. rate & rhythm Abdomen: soft, normal bowel sounds, no distension, tenderness (RUQ /epigastric ) Skin: warm/dry, normal color, other (no CVA tenderness noted ) Extremities: non-tender, normal range of motion Neuro: oriented X3 Discharge Clincal Impression: Kidney stones Referrals: Phan Dickerson MD [Primary Care Provider] - 2 Days Comments: 1. Increase fluids 2. Strain urine 3. Return to nearest ER for any changes in urinary issues 4. See PCP in am 5. Call urologist for follow up in AM Dr Saldivar (he has seen for previous kidney stones) 6. Continue flomax 0.4 mg daily 7. Cyclobenzaprine 10 mg take 1 by mouth every 8 hours as needed for muscle cramps or pain 8. Toradol 10 mg take 1 by mouth every 6 hours as needed for pain Condition: Stable Disposition: AGAINST MEDICAL ADVICE Decision to Admit: NO Date of Decison to Admit: 01/20/19 Decision Time: 17:37
[2019-01-20 13:25] LABS: BASOPHILS % 0.6 (0.0-1.5); EOSINOPHILS % 4.6 % (0.0-6.8); MEAN CORPUSCULAR HEMOGLOBIN 30.1 pg (28.0-34.0); NEUTROPHILS # 5.1 # k/uL (1.4-7.7)
[2019-01-20 13:32] LABS: eGFR (Non-African) > 60
[2019-01-20] MEDS ORDERED: 0.9 % SODIUM CHLORIDE 1,000 ML IV ONE (13:46)
[2019-01-20] MEDS ORDERED: KETOROLAC TROMETHAMINE 30 MG/1ML VIAL IVP ONE (13:46)
--- NOTE | 2019-01-20 14:56 | Diagnostic Imaging Report ---
EVGENY FLOWER [facility] [place] [facility] [address] [facility] [address] [facility] [address] [place], [place]. [address] Report Submission Date: Jan 20, 2019 1:48:39 PM CRNP Patient Study Name: PHYLLIS CAIN Date: Jan 20, 2019 1:33:55 PM CRNP Modality Type: DX Gender: M Description: CHEST 1VIEW : 72 Institution: [facility] [place] [facility] Physician: EVGENY FLOWER Examination: Portable chest History: Evaluate lungs. CHEST PAIN. PT STATES HX OF STROKE AND CHF Comparison exam: 07 September 2018 Findings: Single view of the chest demonstrates a normal cardiac and mediastinal silhouette. Lung biswas without focal infiltrate. No blunting of the costophrenic margins. Osseous structures are appropriate for age. Impression: No acute pulmonary process. Electronically signed on Jan 20, 2019 1:48:39 PM CRNP by: Casimiro ANDERSEN
[2019-01-20] MEDS ORDERED: MORPHINE SULFATE 2 MG/ML VIAL IVP ONE ×2 (15:10→16:43)
[2019-01-20] MEDS ORDERED: MORPHINE SULFATE 10 MG/ML VIAL ONE (15:15)
[2019-01-20 15:18] LABS: APPEARANCE,URINE CLEAR (CLEAR); COLOR,URINE YELLOW (YELLOW)
[2019-01-20 15:19] LABS: OCCULT BLOOD,URINE 1+ (NEGATIVE)
--- NOTE | 2019-01-20 16:57 | Diagnostic Imaging Report ---
EVGENY FLOWER [facility] [address] [facility] [address] [place], [place]. [address] Report Submission Date: Jan 20, 2019 3:25:44 PM [facility] Patient Study Name: PHYLLIS CAIN Date: Jan 20, 2019 2:48:30 PM [facility] Modality Type: CT\\SR Gender: M Description: CT ABD PELVIS W/ CON : 72 Institution: [facility] Physician: EVGENY FLOWER CT ABD PELVIS W/ CON CLINICAL HISTORY: bladder pain/urinary retention, "kidney pain" TECHNIQUE: CT of the abdomen and pelvis was performed with contrast according to standard protocol. COMPARISON: 09/07/2018 FINDINGS: The aorta is normal in course and caliber. The visible lung bases are clear. The heart size is normal without pericardial effusion. The liver enhances homogeneously. The gallbladder is normal without evidence of wall thickening, pericholecystic fluid, or gallstones. The intrahepatic and extrahepatic bile ducts are nondilated. The spleen enhances homogeneously without focal lesion. The pancreas and adrenal glands are normal. The kidneys enhance symmetrically. There is no hydronephrosis. There are bilateral nonobstructive renal calculi, largest on the right measuring 7 mm. Stone burden on the left has slightly increased. The distal esophagus and stomach appear normal. The small bowel and colon are normal in caliber without evidence of wall thickening or obstruction. The appendix is surgically absent. No free air or free fluid is identified within the abdomen. There is no abdominal lymphadenopathy. There is a small fat containing paraumbilical hernia. There is also a small upper abdominal ventral midline fat containing hernia. There is a fat containing right inguinal hernia. The urinary bladder is distended with fluid and appears normal. The prostate appears normal. Knee in the No free fluid is seen within the pelvis. Bone windows demonstrate no suspicious lytic or blastic lesions. The visible osseous structures are intact. There are chronic bilateral L5 pars defects with associated l-5-S1 anterolisthesis. IMPRESSION: 1. No acute process identified in the abdomen or pelvis. 2. Bilateral nonobstructive nephrolithiasis. Stone burden on the left has slightly increased since 09/07/2018. Electronically signed on Jan 20, 2019 3:25:44 PM [facility] by: Jim ANDERSEN
[2019-01-20 18:45] VITALS: BP 131/96
== END 2019-01-20 17:50 | disposition left against medical advice (07) ==
LOC: ED 12:35
DX: N20.0 Calculus of kidney (principal)
CPT/HCPCS: 36415; 71045; 74177; 80053; 81002; 83880; 84484; 85025; 93005; 96374; 96375; 96376; 99283; 99284; J1885; J2270; J7030; Q9967; S1016